=== PATIENT | male | born 1970 | race Caucasian/White ===

== ENCOUNTER → 2021-01-20 | Outpatient (CLI) | payer BC ==
[~2021-01-20] MED LIST: CARV25TA PO; JANU100T PO; LISI10TA22 PO
[2021-01-20 12:21] LABS: BLOOD UREA NITROGEN 16 MG/DL (7-18); CARBON DIOXIDE LEVEL 27 MEQ/L (21-32); CHLORIDE LEVEL 103 MEQ/L (98-107); CHOLESTEROL LEVEL 256 MG/DL (<200); CHOLESTEROL RISK RATIO 7.757 (<5); GLOMERULAR FILTRATION RATE > 60.0 (>56); GLUCOSE, FASTING 195 MG/DL (70-100); HDL CHOLESTEROL 33 MG/DL (>40); NON-HDL-C 223 MG/DL; POTASSIUM SERUM 4.6 MEQ/L (3.5-5.1); SODIUM LEVEL 137 MEQ/L (136-145); TRIGLYCERIDES LEVEL 711 MG/DL (<150)
[2021-01-20 13:55] LABS: HEMOGLOBIN A1c 6.8 %; MALB URINE SIEMENS 22.4 MG/L; MAU/CREAT RATIO 10.6 MCG/MG (0.0-30.0)
== END ==
LOC: M WUC 09:17
PROVIDERS: ATTEND Family Medicine
DX: E11.9 Type 2 diabetes mellitus without complications (principal); Z13.220 Encounter for screening for lipoid disorders

== ENCOUNTER 2021-03-28 09:55 | Emergency (ER) | payer BC ==
[~2021-03-28] VITALS: Ht 172.7 cm; Wt 83.2 kg
--- OUTSIDE RECORDS SUMMARY | 2021-03-28 10:05 | CCD ---
Author Author [facility] Organization [facility] Address Unknown Phone Unavailable Care Team Providers Care Mobile Product Manager Name Role Phone Frankie Crocker Unavailable PROBLEMS Type Condition ICD9-CM Code TAB16-NB Code Onset Dates Condition S tatus W/U Status Risk SNOMED Code Notes Problem Hyperlipidemia, unspecified hyperlipidemia type E7 8.5 Active confirmed 20418728 Problem Gastroesophageal reflux disease without esophagitis K21.9 Active confirmed 976372436 Problem Hypertension, unspecified type I10 Active confir med 72022817 Problem Type 2 diabetes mellitus wit hout complication, without long-term current use of insulin E11.9 Active confirmed [id number] ALLERGIES No Known Allergies ENCOUNTERS from 1970 to 2021-02-22 Encounter Location Date Provider Diagnosis [facility] [id number] [place] [address] [place] [address] 07 Feb, 2021 Frankie Crocker Type 2 diabetes mellitus wit hout complication, without long-term current use of insulin E11.9 ; Hyperlipidemia, unspecified hyperlipidemia type E78.5 ; Hypertension, unspecified type I10 and Gastroesoph ageal reflux disease without esophagitis K21.9 IMMUNIZATIONS No Information SOCIAL HISTORY Tobacco Use: Social History Observation Description Date Details (start date - stop date) Never Smoker Sex Assigned At : Social History Observation Description Sex Assigned At Unknown Education: Question Answer Notes Level of Education: High School Audit Question Answer Notes Total Score: 2 Interpretation: Alcohol Education Language: Question Answer Notes Languages spoken: Emirati Taoist: Question Answer Notes Taoist [employer] Sexual Hx: Question Answer Notes Had sex in the last 12 months (vaginal, oral, or anal)? Yes Have you ever had an STD? No with Women only Use protection? No Drug and Alcohol Question Answer Notes Total Score: 0 Interpretation: No problems reported Alcohol Screening: Question Answer Notes Did you have a drink containing alcohol in the past year? Ye s Points 2 Interpretation Negative How often did you have six or more drinks on one occas ion in the past year? Never (0 points) How many drinks did you have on a typica l day when you were drinking in the past year? 1 or 2 (0 points) How often did you have a drink containing alcohol in t he past year? Two to four times a month (2 points) Tobacco Use: Question Answer Notes Are you a: never smoker REASON FOR REFERRAL No Information VITAL SIGNS Weight 175.8 lbs Feb, Weight-kg 79.74 kg Feb, Height 68 in Feb, BMI 26.73 kg/m2 Feb, Heart Rate 97 /min Feb, Respiratory Rate 18 /min Feb, Temperature 99.1 degrees Fahrenheit Feb, Oximetry 95 Feb, Blood pressure systolic 174 mm Hg Feb, Blood pressure diastolic 104 mm Hg Feb, MEDICATIONS Medication SIG (Take, Route, Frequency, Duration) Notes Start Da te End Date Status metFORMIN HCl 500 MG 1 tablet with a meal Orally Once a day for 90 days 90 days May, Active Januvia 100 MG 1 tablet Orally Once a day for 90 days only 30 days Active Carvedilol 25 MG 1 tablet Orally Twice a day for 90 days 90 days Active Lisinopril 10 MG 1 tablet Orally bid for 90 days 90 days Active Pravastatin Sodium 10 MG 1 tablet Orally Once a day for 90 d ays Start half tablet for 1 week, increase whole tablet if tolerate Feb, Active PROCEDURES No Information RESULTS No Results REASON FOR VISIT F/U TEST RESULTS MEDICAL (GENERAL) HISTORY Type Description Date Medical History HTN, goal 140/90 Medical History DM, goal A1C 7% Surgical History right eye sugery 6 years Goals Section No Information Health Concerns No Information MEDICAL EQUIPMENT No Information MENTAL STATUS No Information FUNCTIONAL STATUS No Information ASSESSMENTS Encounter Date Diagnosis Assessment Notes Treatment Notes Treatm ent Clinical Notes Feb, Hyperlipidemia, unspecified hyperlipidemia type (ICD-10 - E78.5) Fasting lab notes elevated cholesterol and triglycerides over 400. Discussed start statin, may have had intolerate before. Discussed importance for lowering cholesterol and overall risk of RI especially with DM. Will start pravastatin, unsure what statins used before. Start half tablet for 1-2 weeks then increase to whole tablet. If tolerate continue that for now. Call office if not able to tolerate. Other statins can try if not tolerate. Can even do every other day dosing, etc. Zetia may be an option, does not have same level of efficacy per studies, overall benefit cardiovascular. Also work on decreasing cholesterol intake. Feb, Type 2 diabetes mellitus wit hout complication, without long-term current use of insulin (ICD-10 - E11.9) A1C under 7%. Congratulated patient on good control, keep up good work. Continue medication. Feb, Hypertension, unspecified type (ICD-10 - I10) check BP outside office Feb, Gastroesophageal reflux dise ase without esophagitis (ICD-10 - K21.9) start pepcid otc, try that first if not working, question can call office can restart omeprazole, cautioned on filler leaf cutter long effects, will try pepcid first PLAN OF TREATMENT Medication Medication Name Sig Start Date Stop Date Pravastatin Sodium 10 MG 1 tablet Orally Once a day for 90 days Feb, Treatment Notes Assessment Notes Clinical Notes Hyperlipidemia, unspecified hyperlipidemia type Fasting lab notes elevated cholesterol and triglycerides over 400. Discussed start statin, may have had intolerate before. Discussed importance for lowering cholesterol and overall risk of RI especially with DM. Will start pravastatin, unsure what statins used before. Start half tablet for 1-2 weeks then increase to whole tablet. If tolerate continue that for now. Call office if not able to tolerate.Other statins can try if not tolerate. Can even do every other day dosing, etc. Zetia may be an option, does not have same level of efficacy per studies, overall benefit cardiovascular.Also work on decreasing cholesterol intake. Type 2 diabetes mellitus without complic ation, without long-term current use of insulin A1C under 7%. Congratulated patient on good control, keep up good work. Continue medication. Hypertension, unspecified type check BP outside office Gastroesophageal reflux disease without esophagitis start pepcid otc, try that firstif not working, question can call officecan restart omeprazole, cautioned on correction effects, will try pepcid first Next Appt Details 6 mth Reason: Insurance Providers Payer Name Payer Address Payer Phone Insured Name Patient Relati onship to Insured Coverage Start Date Coverage End Date [employer] PPO [address] [id number] CHRIS DEWEY self
--- OUTSIDE RECORDS SUMMARY | 2021-03-28 10:05 | CCD ---
Author Author [facility] Organization [facility] Address Unknown Phone Unavailable Support Name Relationship Address Phone KIMBERLEY LYNCH Next Of Kin [address] [place] [address] Nelly DEWEY Next Of Kin [address] [facility] [address] [place] [address] ALEKSEY Next Of Kin [address] [place] [address] YUMI DEWEY Next Of Kin [address] [place] [address] KIMBERLEY LYNCH [place] [address] [place] [address] Unavailable Re-disclosure Warning The records that you are about to access may contain information from federally-assisted alcohol or drug abuse programs. If such information is present, then the following federally mandated warning applies: This information has been disclosed to you from records protected by federal confidentiality rules (42 CFR part 2). The federal rules prohibit you from making any further disclosure of this information unless further disclosure is expressly permitted by the written consent of the person to whom it pertains or as otherwise permitted by 42 CFR part 2. A general authorization for the release of medical or other information is NOT sufficient for this purpose. The Federal rules restrict any use of the information to criminally investigate or prosecute any alcohol or drug abuse patient.The records that you are about to access may contain highly sensitive health information, the redisclosure of which is protected by Article 27-F of the [facility] Public Health law. If you continue you may have access to information: Regarding HIV / AIDS; Provided by facilities licensed or operated by the [facility] Office of Mental Health; or Provided by the [facility] Office for People With Developmental Disabilities. If such information is present, then the following [facility] mandated warning applies: This information has been disclosed to you from confidential records which are protected by state law. State law prohibits you from making any further disclosure of this information without the specific written consent of the person to whom it pertains, or as otherwise permitted by law. Any unauthorized further disclosure in violation of state law may result in a fine or assisted sentence or both. A general authorization for the release of medical or other information is NOT sufficient authorization for further disc losure. Family History Family Member Name Family Member Gender Family Member Status Date o f Status Description Data Source(s) Unknown Unknown Problem MEDENT ([facility]) Unknown Unknown Problem MEDENT ([facility]) Unknown Unknown Problem MEDENT ([facility]) Encounters Encounter Providers Location Date Indications Data Source(s ) Outpatient [address] [facility] [id number] 02/17/2021 12:00:00 AM EDT eCW1 ([facility]) Unknown [address] [facility] [address] 01/28/2021 12:00:00 AM EDT eCW1 ([facility]) Unknown [address] [facility] [address] 01/24/2021 12:00:00 AM EDT eCW1 ([facility]) Outpatient [address] [facility] [id number] 12/09/2020 12:00:00 AM EDT eCW1 ([facility]) Medications Medication Brand Name Start Date Product Form Dose Route Admi nistrative Instructions Pharmacy Instructions Status Indications Reaction Description Data Source(s) Pravastatin Sodium 10 MG Oral Tablet Pravastatin Sodium 10 M G 02/17/2021 12:00:00 AM EDT 1.0 {tablet} active Pr avastatin Sodium 10 MG eCW1 ([facility]) Insurance Providers Payer name Policy type / Coverage type Policy ID Covered libertarian ID Covered libertarian's relationship to cortes Policy Cortes Plan Information [employer] [place] P[place] 302/307 [id number] SP [id number] [employer] BC-BS PPO 306 [id number] SP [id number] [employer] BCBS B [id number] S [id number] [employer] [place] PPO 302/307 [id number] SP [id number] [employer] [id number] [id number] P[employer] -O/P [id number] 01 [id number] [employer] PPO O [id number] P [id number] [place] [employer] [id number] Family Dependent LUCRECIA [facility] [id number] SP [id number] OTHER WORKERS COMPENSATION [id number] SP [id number] Problems, Conditions, and Diagnoses Code Display Name Description Problem Type Effective Dates Data Source(s) K21.9 [id number] Gastroesophageal reflux disease without e sophagitis Problem 02/17/2021 12:00:00 AM EDT eCW1 ([facility]) E78.5 [id number] Hyperlipidemia, unspecified hyperlipidemi a type Problem 02/17/2021 12:00:00 AM EDT eCW1 ([facility]) Surgeries/Procedures No Information Results No Information Social History Code Duration Value Status Description Data Source(s ) Smoking 02/17/2021 12:00:00 AM EDT Never Smoker completed Never S moker eCW1 ([facility]) Smoking 12/09/2020 12:00:00 AM EDT Never Smoker completed Never S moker eCW1 ([facility]) Smoking 12/09/2020 12:00:00 AM EDT Never Smoker completed Never S moker eCW1 ([facility]) Smoking 12/09/2020 12:00:00 AM EDT Never Smoker completed Never S moker eCW1 ([facility]) Vital Signs ID Date Data Source UNK Name Value Range Interpretation Code Description Data Source(s) Body weight 175.8 [lb_av] 175.8 [lb_av] eCW1 ([facility]) Body weight 79.74 kg 79.74 kg eCW1 ([facility]) Body height 68 [in_i] 68 [in_i] eCW1 ([facility]) Body mass index (BMI) [Ratio] 26.73 kg/m2 26.73 kg/m2 eCW1 ([facility]) Heart rate 97 /min 97 /min eCW1 ([facility]) Respiratory rate 18 /min 18 /min eCW1 ([facility]) Body temperature 99.1 [degF] 99.1 [degF] eCW1 ( [facility]) Systolic blood pressure 174 mm[Hg] 174 mm[Hg] e CW1 ([facility]) Diastolic blood pressure 104 mm[Hg] 104 mm[Hg] eCW1 ([facility]) Body weight 173.6 [lb_av] 173.6 [lb_av] eCW1 ([facility]) Body height 68 [in_i] 68 [in_i] eCW1 ([facility]) Body mass index (BMI) [Ratio] 26.39 kg/m2 26.39 kg/m2 eCW1 ([facility]) Heart rate 96 /min 96 /min eCW1 ([facility]) Respiratory rate 16 /min 16 /min eCW1 ([facility]) Body temperature 99.0 [degF] 99.0 [degF] eCW1 ( [facility]) Systolic blood pressure 185 mm[Hg] 185 mm[Hg] e CW1 ([facility]) Diastolic blood pressure 111 mm[Hg] 111 mm[Hg] eCW1 ([facility]) Patient Treatment Plan of Care Planned Activity Planned Date Details Description Data Source (s) Pravastatin Sodium 10 MG Oral Tablet 02/17/2021 12:00:00 AM EDT eCW1 ([facility])
--- OUTSIDE RECORDS SUMMARY | 2021-03-28 10:05 | CCD ---
Author Author [facility] Organization [facility] Address Unknown Phone Unavailable Care Team Providers Care Floating Operator Name Role Phone Frankie Crocker Unavailable PROBLEMS Type Condition ICD9-CM Code [id number] Code Onset Dates Condition S tatus W/U Status Risk SNOMED Code Notes Problem Hypertension, unspecified type I10 Active confir med 93628149 Problem Type 2 diabetes mellitus wit hout complication, without long-term current use of insulin E11.9 Active confirmed [id number] ALLERGIES No Known Allergies ENCOUNTERS from 1970 to 2021-01-28 Encounter Location Date Provider Diagnosis [facility] [address] [facility] [phone] [place] [address] 17 Jan, 2021 Frankie Crocker Type 2 diabetes mellitus wit hout complication, without long-term current use of insulin E11.9 and Hypertension, unspecified type I10 IMMUNIZATIONS No Information SOCIAL HISTORY Tobacco Use: Social History Observation Description Date Details (start date - stop date) Never Smoker Sex Assigned At : Social History Observation Description Sex Assigned At Unknown Education: Question Answer Notes Level of Education: High School Audit Question Answer Notes Total Score: 2 Interpretation: Alcohol Education Language: Question Answer Notes Languages spoken: Chinese Christianity: Question Answer Notes Christianity 21 Zoroastrianism Sexual Hx: Question Answer Notes Had sex [...] REASON FOR REFERRAL No Information VITAL SIGNS No information MEDICATIONS Medication SIG (Take, Route, Frequency, Duration) Notes Start Da te End Date Status Januvia 100 MG 1 tablet Orally Once a day for 90 days only 30 days Active Lisinopril 10 MG 1 tablet Orally bid for 90 days 90 days Active metFORMIN HCl 500 MG 1 tablet with a meal Orally Once a day for 90 days 90 days May, Active Carvedilol 25 MG 1 tablet Orally Twice a day for 90 days 90 days Active PROCEDURES No Information RESULTS No Results REASON FOR VISIT multiple refills MEDICAL (GENERAL) HISTORY Type Description Date Medical History HTN, goal 140/90 Medical History DM, goal A1C 7% Surgical History right eye sugery 6 years Goals Section No Information Health Concerns No Information MEDICAL EQUIPMENT No Information MENTAL STATUS No Information FUNCTIONAL STATUS No Information ASSESSMENTS Encounter Date Diagnosis Assessment Notes Treatment Notes Treatm ent Clinical Notes Jan, Type 2 diabetes mellitus wit hout complication, without long-term current use of insulin (ICD-10 - E11.9) Jan, Hypertension, unspecified type (ICD-10 - I10) PLAN OF TREATMENT Medication Medication Name Sig Start Date Stop Date Januvia 100 MG 1 tablet Orally Once a day for 90 days metFORMIN HCl 500 MG 1 tablet with a meal Orally Once a day for 90 days May, Carvedilol 25 MG 1 tablet Orally Twice a day for 90 days Lisinopril 10 MG 1 tablet Orally bid for 90 days Insurance Providers Payer Name Payer Address Payer Phone Insured Name Patient Relati onship to Insured Coverage Start Date Coverage End Date [employer] PPO [address] [address] CHRIS DEWEY self
--- OUTSIDE RECORDS SUMMARY | 2021-03-28 10:05 | CCD ---
Author Author [facility] Organization [facility] Address Unknown Phone Unavailable Care Team Providers Care Valuer Name Role Phone Frankie Crocker Unavailable PROBLEMS Type Condition ICD9-CM Code [id number] Code Onset Dates Condition S tatus W/U Status Risk SNOMED Code Notes Problem Hypertension, unspecified type I10 Active confir med 50015342 Problem Type 2 diabetes mellitus wit hout complication, without long-term current use of insulin E11.9 Active confirmed 504363500 ALLERGIES No Known Allergies ENCOUNTERS from 1970 to 2021-02-17 Encounter Location Date Provider Diagnosis [facility] [address] [facility] [phone] [place] [address] 13 Jan, 2021 Frankie Crocker IMMUNIZATIONS No Information SOCIAL HISTORY Tobacco Use: Social History Observation Description Date Details (start date - stop date) Never Smoker Sex Assigned At : Social History Observation Description Sex Assigned At Unknown Education: Question Answer Notes Level of Education: High School Audit Question Answer Notes Total Score: 2 Interpretation: Alcohol Education Language: Question Answer Notes Languages spoken: Australian Catholic: Question Answer Notes Catholic 21 Orthodoxy Sexual Hx: Question Answer Notes Had sex [...] Information RESULTS No Results REASON FOR VISIT labs MEDICAL (GENERAL) HISTORY Type Description Date Medical History HTN, goal 140/90 Medical History DM, goal A1C 7% Surgical History right eye sugery 6 years Goals Section No Information Health Concerns No Information MEDICAL EQUIPMENT No Information MENTAL STATUS No Information FUNCTIONAL STATUS No Information ASSESSMENTS No Information PLAN OF TREATMENT Medication Medication Name Sig Start Date Stop Date Januvia 100 MG 1 tablet Orally Once a day for 90 days metFORMIN HCl 500 MG 1 tablet with a meal Orally Once a day for 90 days May, Carvedilol 25 MG 1 tablet Orally Twice a day for 90 days Lisinopril 10 MG 1 tablet Orally bid for 90 days Next Appt Details Provider Name:Frankie Crocker, 2021-02-17 02:45:00 PM, [address] [facility], , [place], [address], Insurance Providers Payer Name Payer Address Payer Phone Insured Name Patient Relati onship to Insured Coverage Start Date Coverage End Date [employer] PPO [id number] [address] CHRIS DEWEY self
[2021-03-28] MEDS ORDERED: PRAV10TA3 PO (10:18)
[2021-03-28] MEDS ORDERED: METF500T13 PO (10:19)
--- OUTSIDE RECORDS SUMMARY | 2021-03-28 11:25 | CCD ---
Author Author [facility] Organization [facility] Address Unknown Phone Unavailable Support Name Relationship Address Phone KIMBERLEY LYNCH Next Of Kin [address] [place] [address] Nelly DEWEY Next Of Kin [address] [facility] [address] [place] [address] ALEKSEY Next Of Kin [address] [place] [address] YUMI DEWEY Next Of Kin [address] [place] [address] KIMBERLEY LYNCH ECON [address] [place] [address] Unavailable Re-disclosure Warning The records that you [...] is protected by Article 27-F of the [facility] Public Health law. If you continue you may have access to information: Regarding HIV / AIDS; Provided by facilities licensed or operated by the [facility] Office of Mental Health; or Provided by the [facility] Office for People With Developmental Disabilities. If such information is present, then the following [facility] mandated warning applies: This information has [...] law may result in a fine or care home sentence or both. A general authorization for [...] Date Indications Data Source(s ) Outpatient [address] [facility] [id number] 02/17/2021 12:00:00 AM EDT eCW1 ([facility]) Unknown [address] [facility] [id number] 01/28/2021 12:00:00 AM EDT eCW1 ([facility]) Unknown [address] [facility] [id number] 01/24/2021 12:00:00 AM EDT eCW1 ([facility]) Outpatient [address] [facility] [id number] 12/09/2020 12:00:00 AM EDT eCW1 ([facility]) Medications Medication Brand Name Start Date Product Form Dose Route Admi nistrative Instructions Pharmacy Instructions Status Indications Reaction Description Data Source(s) Pravastatin Sodium 10 MG Oral Tablet Pravastatin Sodium 10 M G 02/17/2021 12:00:00 AM EDT 1.0 {tablet} active Pr avastatin Sodium 10 MG eCW1 ([facility]) Insurance Providers Payer name Policy type / Coverage type Policy ID Covered republican ID Covered republican's relationship to cortes Policy [place] Plan Information [employer] [place] 302/307 [id number] SP [id number] [employer]-BS PPO [id number] SP [id number] [employer] BCBS B [id number] S [id number] [employer] [place] PPO 302/307 [id number] SP [id number] [employer] [id number] [employer] -O/P [id number] 01 [id number] [employer] PPO O [id number] P [id number] [place] [employer] [id number] Family Dependent [facility] [id number] SP [id number] OTHER WORKERS COMPENSATION [id number] SP [id number] Problems, Conditions, and Diagnoses Code Display Name Description Problem Type Effective Dates Data Source(s) K21.9 [id number] Gastroesophageal reflux disease without e sophagitis Problem 02/17/2021 12:00:00 AM EDT eCW1 ([facility]) E78.5 [id number] Hyperlipidemia, unspecified hyperlipidemi a type Problem 02/17/2021 12:00:00 AM EDT eCW1 ([facility]) Surgeries/Procedures No Information Results No Information Social History Code Duration Value Status Description Data Source(s ) Smoking 02/17/2021 12:00:00 AM EDT Never Smoker completed Never S moker eCW1 ([facility]) Smoking 12/09/2020 12:00:00 AM EDT Never Smoker completed Never S moker eCW1 ([facility]) Smoking 12/09/2020 12:00:00 AM EDT Never Smoker completed Never S moker eCW1 ([facility]) Smoking 12/09/2020 12:00:00 AM EDT Never Smoker completed Never S moker eCW1 ([facility]) Vital Signs ID Date Data Source UNK Name Value Range Interpretation Code Description Data Source(s) Body weight 175.8 [lb_av] 175.8 [lb_av] eCW1 ([facility]) Body weight 79.74 kg 79.74 kg eCW1 ([facility]) Body height 68 [in_i] 68 [in_i] eCW1 ([facility]) Body mass index (BMI) [Ratio] 26.73 kg/m2 26.73 kg/m2 eCW1 ([facility]) Heart rate 97 /min 97 /min eCW1 ([facility]) Respiratory rate 18 /min 18 /min eCW1 ([facility]) Body temperature 99.1 [degF] 99.1 [degF] eCW1 ( [facility]) Systolic blood pressure 174 mm[Hg] 174 mm[Hg] e CW1 ([facility]) Diastolic blood pressure 104 mm[Hg] 104 mm[Hg] eCW1 ([facility]) Body weight 173.6 [lb_av] 173.6 [lb_av] eCW1 ([facility]) Body height 68 [in_i] 68 [in_i] eCW1 ([facility]) Heart rate 96 /min 96 /min eCW1 ([facility]) Respiratory rate 16 /min 16 /min eCW1 ([facility]) Body temperature 99.0 [degF] 99.0 [degF] eCW1 ( [facility]) Systolic blood pressure 185 mm[Hg] 185 mm[Hg] e CW1 ([facility]) Diastolic blood pressure 111 mm[Hg] 111 mm[Hg] eCW1 ([facility]) Body mass index (BMI) [Ratio] 26.39 kg/m2 26.39 kg/m2 W1 ([facility]) Patient Treatment Plan of Care Planned Activity Planned Date Details Description Data Source (s) Pravastatin Sodium 10 MG Oral Tablet 02/17/2021 12:00:00 AM EDT eCW1 ([facility])
[2021-03-28 12:13] VITALS: BP 200/110
[2021-03-28 12:15] VITALS: BP 200/110
== END 2021-03-28 12:39 | disposition home or self-care (01) ==
LOC: M ED 09:55
DX: R04.0 Epistaxis (principal); I10 Essential (primary) hypertension; Z79.899 Other long term (current) drug therapy

== ENCOUNTER → 2024-01-22 | Outpatient (REF) | payer BC ==
[~2024-01-22] MED LIST changes: +METF500T13 PO; +PRAV10TA3 PO
[2024-01-22 11:48] LABS: APPEARANCE, URINE CLEAR (CLEAR); BACTERIA, URINE AUTO NEGATIVE (NEGATIVE); BILIRUBIN, URINE AUTO NEGATIVE (NEGATIVE); BLOOD, URINE BLOOD NEGATIVE (NEGATIVE); COLOR, URINE YELLOW (YELLOW); GLUCOSE, URINE (UA) AUTO 1+ mg/dL (NEGATIVE); KETONE, URINE AUTO NEGATIVE (NEGATIVE); LEUKOCYTE ESTERASE, URINE AUTO NEGATIVE (NEGATIVE); NITRITE, URINE AUTO NEGATIVE (NEGATIVE); PROTEIN, URINE AUTO NEGATIVE (NEGATIVE); RBC, URINE AUTO 0 /HPF (0-3); SPECIFIC GRAVITY URINE AUTO 1.019 (1.002-1.035); SQUAMOUS EPITHELIAL CELL UR AU 0 /HPF (0-6); UROBILINOGEN, URINE AUTO 0.2 mg/dL (0.0-2.0); WBC, URINE AUTO 1 /HPF (0-3)
[2024-01-22 11:59] LABS: CREATININE, URINE 138.7 MG/DL; MAU/CREAT RATIO 11.5 MCG/MG (0.0-30.0)
[2024-01-22 12:06] LABS: ALBUMIN 3.6 G/DL (3.2-5.2); ALKALINE PHOSPHATASE 82 U/L (46-116); ALT/SGPT 30 U/L (7.0-40); AST/SGOT 13 U/L (<34); BILIRUBIN,TOTAL 0.6 MG/DL (0.3-1.2); BLOOD UREA NITROGEN 21 MG/DL (9-23); CALCIUM LEVEL 8.9 MG/DL (8.5-10.1); CARBON DIOXIDE LEVEL 25 MMOL/L (20-31); CHLORIDE LEVEL 102 MMOL/L (98-107); CHOLESTEROL LEVEL 271 MG/DL (<200); CREATININE FOR GFR 0.85 MG/DL (0.70-1.30); GLOMERULAR FILTRATION RATE > 60.0 (>56); GLUCOSE, FASTING 195 MG/DL (60-100); HDL CHOLESTEROL 31.5 MG/DL (>40); NON-HDL-C 239.5 MG/DL; POTASSIUM SERUM 4.6 MMOL/L (3.5-5.1); SODIUM LEVEL 135 MMOL/L (136-145); TOTAL PROTEIN 6.4 G/DL (5.7-8.2); TRIGLYCERIDES LEVEL 1398 MG/DL (<150)
== END ==
LOC: M SFHCLERA 09:31
PROVIDERS: ATTEND Family Medicine
DX: E11.9 Type 2 diabetes mellitus without complications (principal); E78.5 Hyperlipidemia, unspecified

== ENCOUNTER → 2024-12-23 | Outpatient (REF) | payer BC ==
[~2024-12-23] MED LIST changes: -PRAV10TA3 PO; +PRAV10TA43 PO
== END ==
LOC: M SFHCLERA 08:23
DX: Z53.9 Procedure and treatment not carried out, unspecified reason (principal)

== ENCOUNTER → 2025-03-17 | Outpatient (REF) | payer BC ==
[2025-03-17 17:23] LABS: BASO # 0.0 10^3/uL (0.0-0.2); BASO % 0.5 % (0.0-1.0); EOS # 0.1 10^3/uL (0.0-0.5); EOS % 1.6 % (0.0-3.0); LYMPH # 2.1 10^3/uL (1.5-5.0); LYMPH % 23.8 % (24.0-44.0); MONO # 0.7 10^3/uL (0.0-0.8); MONO % 8.3 % (2.0-8.0); NEUTROPHILS # 5.6 10^3/uL (1.5-8.5); NEUTROPHILS % 65.0 % (36.0-66.0); PLATELET COUNT, AUTOMATED 169 10^3/uL (150-450)
[2025-03-17 17:28] LABS: ALT/SGPT 28 U/L (7.0-40); AST/SGOT 19 U/L (<34); CALCIUM LEVEL 8.9 MG/DL (8.5-10.1); CARBON DIOXIDE LEVEL 27 MMOL/L (20-31); CHLORIDE LEVEL 102 MMOL/L (98-107); CHOLESTEROL LEVEL 171 MG/DL (<200); CHOLESTEROL RISK RATIO 4.36 (<5); CREATININE FOR GFR 0.97 MG/DL (0.70-1.30); GLOMERULAR FILTRATION RATE > 90.0 (>56); LDL CHOLESTEROL 63.0 MG/DL (<100); NON-HDL-C 131.8 MG/DL; POTASSIUM SERUM 4.9 MMOL/L (3.5-5.1); SODIUM LEVEL 137 MMOL/L (136-145); TRIGLYCERIDES LEVEL 344 MG/DL (<150)
[2025-03-17 17:51] LABS: ESTIMATED AVERAGE GLUCOSE 143.0 MG/DL (60-110)
[2025-03-17 18:37] LABS: CREATININE, URINE 107.2 MG/DL; MALB URINE SIEMENS 11.0 MG/L; MAU/CREAT RATIO 10.2 MCG/MG (0.0-30.0)
== END ==
LOC: M SFHCLERA 09:10
PROVIDERS: ATTEND Family Medicine
DX: E11.9 Type 2 diabetes mellitus without complications (principal)